=== PATIENT | male | born 2000 | race Caucasian/White ===

== ENCOUNTER 2022-10-12 09:56 | Observation (INO) ==
--- NOTE | 2022-10-06 09:31 | Anesthesiology Consultation ---
Date of Service October 06, 2022 Assessment & Plan (1) Encounter for pre-operative examination: Chart Review Chart Review: Acceptable Risk for Surgery and Patient NOT seen in Pre Admission Testing Pt rescheduled from 10/05/22 to 10/12/22 due to robot not functioning -COVID screening: Per PAT nursing assessment on 10/05/22. No known COVID-19 positive contacts or current COVID-19 related symptoms. Travel screen negative. At surgeon discretion if preop Covid testing being done. Cysto, left stent 09/13/22=Done under MAC. No issues noted per anesthesia record/progress note History Surgery Operation Date: 10/12/22 11:20 Proposed Procedures p Dismembered Laparoscopic Robotic Assisted Pyeloplasty - Stalin Kinney MD Height/Weight Height: 6 ft 1 in Weight: 71.214 kg Allergies Allergy/AdvReac Type Severity Reaction Status Date / Time gluten Allergy Intermediate celiac Verified 10/05/22 16:19 Sulfa (Sulfonamide Allergy Intermediate Rash Verified 10/05/22 16:19 Antibiotics) wheat Allergy Intermediate celiac Verified 10/05/22 16:19 Medications Home Medications Medication Instructions Recorded Confirmed Last Taken betamethasone dipropionate 0.05 % 1 applic topical .COMPLEX #45 grams 06/20/22 10/05/22 08/30/22 topical cream ondansetron 4 mg disintegrating 4 mg PO DAILY PRN Nausea 09/07/22 10/05/22 Unknown tablet oxycodone 5 mg capsule 5 mg PO Q8H PRN pain #10 caps 09/07/22 10/05/22 Unknown tamsulosin 0.4 mg capsule (Flomax) 0.4 mg PO HS 09/07/22 10/05/22 10/04/22 23:00 Past Medical History Medical History Celiac disease History of kidney stones passed on own Ureteropelvic junction (UPJ) obstruction Past Family History Family History Father Depression Hyperthyroidism Hypertension Mother Hypothyroidism Grandmother (Maternal) Diabetes Grandmother (Paternal) Myocardial infarction Other No family history of adverse response to anesthesia Denies family history of Crohn's disease Colorectal cancer Ulcerative colitis Past Surgical History Surgical History History of colonoscopy 07/17/22 @ [facility] History of esophagogastroduodenoscopy (EGD) 07/17/22 @ [facility] History of mandibular surgery upper and lower jaw surgery History of nasal surgery x2 [place] teeth extracted Social History Smoking Status: Never smoker Do You Dip or Chew Tobacco: No Hx Alcohol Use: Yes Alcohol type: wine alcohol intake frequency: a few times a month Hx Substance Use: No substance use type: does not use Lab Results Anesthesia Preop Results Results Anesthesia Widget: WBC 5.41 K/ul (4.8-10.8) 09/07/22 Hgb 14.8 g/dl (14.0-18.0) 09/07/22 Hct 41.6 % (42.0-52.0) L 09/07/22 Plt 260 K/uL (130-400) 09/07/22 Na 136 mmol/L (136-145) 09/07/22 K 3.5 mmol/L (3.5-5.1) 09/07/22 Cl 100 mmol/L (98-107) 09/07/22 CO2 27 mmol/L (21-32) 09/07/22 BUN 17 mg/dl (6-23) 09/07/22 Creat 1.07 mg/dl (0.6-1.4) 09/07/22 Glucose Level 109 mg/dl (70-99(Fasting)) H 09/07/22 Blood Type A Positive 10/05/22 Antibody Screen NEGATIVE 10/05/22 Testing Laboratory Results 09/07/22= URINE CULTURE: No growth- less than 1000 colonies/mL
[~2022-10-12 09:56] MED LIST: DEXAMETHASONE SOD INJ 4 MG/ML VIAL ONE; LIDOCAINE 2% 2 ML VIAL/AMP(20MG/ML) INFIL ONE; LR 15ML/HR IV SCH; MIDAZOLAM HCL 1 MG/ML 2ML VIAL ONE; ONDANSETRON INJ 2 MG/ML 2 ML VIAL ONE; PROPOFOL IV EMULSION 10 MG/ML 20 ML VIAL IV ONE; ROCURONIUM BROMIDE 10 MG/ML 5 ML VIAL IV ONE; ceFAZolin 2000MG 2,000 MG/15 ML SYR IV SCH; fentaNYL citrate PF 100 MCG/2 ML VIAL ONE
[2022-10-12] MEDS ORDERED: HYDROmorphone INJ 2 MG/ML SYR/VIAL IV PRN (10:56)
[2022-10-12] MEDS ORDERED: ePHEDrine sulfate 50 MG/ML AMP IV PRN (10:56)
[2022-10-12] MEDS ORDERED: ONDANSETRON INJ 2 MG/ML 2 ML VIAL IV PRN ×2 (10:56→17:03)
[2022-10-12] MEDS ORDERED: ATROPINE SULFATE 0.1 MG/ML 10ML SYR IV PRN (10:56)
--- NOTE | 2022-10-12 11:34 | History & Physical Report ---
Date of Service October 12, 2022 Assessment & Plan (1) Ureteropelvic junction (UPJ) obstruction: Plan: We reviewed the plan for robot-assisted laparoscopic left-sided pyeloplasty. We reviewed risks of bleeding, infection, injury to urinary tract, injury to nearby structures, need for additional procedures, need for ureteral stent. He expressed understanding and willingness to proceed with surgery. History of Present Illness Primary Care Provider: Britton Leung This is a 22-year-old male followed by urology for left-sided UPJ obstruction. He presents to the OR today for robot-assisted laparoscopic left pyeloplasty. He denies any changes in his health. Allergies Allergy/AdvReac Type Severity Reaction Status Date / Time gluten Allergy Intermediate celiac Verified 10/12/22 10:14 Sulfa (Sulfonamide Allergy Intermediate Rash Verified 10/12/22 10:14 Antibiotics) wheat Allergy Intermediate celiac Verified 10/12/22 10:14 Home Medications Medication Instructions Recorded Confirmed Type betamethasone dipropionate 0.05 % 1 applic topical .COMPLEX #45 grams 06/20/22 10/12/22 Rx topical cream ondansetron 4 mg disintegrating 4 mg PO DAILY PRN Nausea 09/07/22 10/12/22 History tablet oxycodone 5 mg capsule 5 mg PO Q8H PRN pain #10 caps 09/07/22 10/12/22 Rx tamsulosin 0.4 mg capsule (Flomax) 0.4 mg PO HS 09/07/22 10/12/22 History Past Med/Surg History Medical History Celiac disease History of kidney stones passed on own Ureteropelvic junction (UPJ) obstruction Surgical History History of colonoscopy 07/17/22 @ [facility] History of esophagogastroduodenoscopy (EGD) 07/17/22 @ [facility] History of mandibular surgery upper and lower jaw surgery History of nasal surgery x2 [place] teeth extracted Family History Father Depression Hyperthyroidism Hypertension Mother Hypothyroidism Grandmother (Maternal) Diabetes Grandmother (Paternal) Myocardial infarction Other No family history of adverse response to anesthesia Denies family history of Crohn's disease Colorectal cancer Ulcerative colitis Social History Smoking Status: Never smoker Second Hand Exposure: No; Do You Dip or Chew Tobacco: No; Hx Alcohol Use: Yes Alcohol type: wine Hx Substance Use: No Preferred Language: [place]erratian Communication Ability: Effective Speeder Operator Required: No Beliefs That Will Affect Care: None Current Living Situation: Alone Feels Safe at Home: Yes Safety Concerns: Feels Safe At This Time Assistive Devices: Glasses Review of Systems 12 point review of systems negative except for otherwise indicated. Physical Exam Constitutional: well developed and well nourished; no acute distress Eyes: + anicteric sclerae; pupils not irregular Respiratory: normal respiratory effort; no respiratory distress, does not use accessory muscles and no cough Cardiovascular: well perfused Gastrointestinal (Abdomen): Inspection/Auscultation: abdomen normal to inspection; abdomen not distended Musculoskeletal: Extremities: extremities normal to inspection Skin: normal turgor; no rashes and no lesions Neurologic: moves all extremities and awake Psychiatric: Orientation: alert and oriented x 3 Results & Data Vital Signs (Past 12 Hours) Vital Signs Temp Pulse Resp BP Pulse Ox O2 Del Method 10/12/22 10:18 36.6 C 88 20 146/74 H 100 Room Air
[2022-10-12] MEDS ORDERED: BUPIVACAINE 0.5 % 5 MG/1 ML MPF 30ML VIAL ONE (11:38)
[2022-10-12] MEDS ORDERED: HYDROmorphone INJ 2 MG/ML SYR/VIAL ONE (12:13)
[2022-10-12] MEDS ORDERED: KETAMINE 50 MG/5 ML SYRINGE ONE (12:14)
[2022-10-12] MEDS ORDERED: ePHEDrine sulfate 50 MG/ML AMP ONE (12:31)
[2022-10-12] MEDS ORDERED: SUGAMMADEX SODIUM 200 MG/2 ML VIAL IV ONE (13:39)
[2022-10-12] MEDS ORDERED: SURGICEL ABSORB HEMOSTAT 2IN X 14IN TOP ONE (14:33)
--- NOTE | 2022-10-12 15:25 | Operative Report ---
PG Post Operative Report Pre & Post Diagnosis Operation Date: 10/12/22 11:20 Pre-Op Diagnosis: Ureteropelvic junction obstruction (left) Post-Op Diagnosis: Ureteropelvic junction obstruction (left) I identified the patient and participated in the time-out.: Yes Procedure Operation Date: 10/12/22 11:20 Actual Procedures p Dismembered laparoscopic robotic assisted pyeloplasty, left(Left) - Stalin Kinney MD Surgeon Stalin Kinney MD Edi Analyst PALMIRA Gan Estimated Blood Loss 10 Findings See Below Crossing vessel identified to the lower pole of the left kidney. Dismembered pyeloplasty performed. Ureteral stent left in place. Specimens Ureteral segment compressed by crossing vessel Drains 6 Japanese by 26 cm double-J ureteral stent in the left ureter Anesthesia Type General Complications none Disposition Accompanied Patient To Recovery: Yes Disposition: Recovery Room Indications This is a 22-year-old male followed by urology for left-sided flank pain and left UPJ obstruction. He presents to the OR today for pyeloplasty. Description of Procedure The patient was identified in the preoperative holding area and informed consent was confirmed. He was marked on the left side. He was then brought to the operating room where general anesthesia was initiated. He was placed on the operating table in a flank position with the left flank elevated. All pressure points were carefully padded, and he was secured to the table using tape. His abdomen was prepped and draped in the usual sterile fashion a timeout was then performed. Robotic port sites were marked in a line approximately 6 cm right of midline. The uppermost of these ports was approximately 2 fingerbreadths below the costal margin, and the lower ports were 6-7 cm apart. An incision was made over the right upper quadrant port site. Using a Veress needle, access to the peritoneum was obtained, confirming good position with a drop test, negative aspiration and low initial insufflation pressure. The camera was inserted and the abdomen was surveyed. There was no injury to intra-abdominal contents. There were some thin adhesions of the descending colon to the abdominal wall. The remaining 8 mm robotic ports were placed under direct visualization and a 12 mm social media assistant port was placed just cephalad of the umbilicus. The robot was then docked. The adhesions were lysed sharply and the descending colon was reflected along the white line of Toldt. This allowed exposure to the kidney and the likely location of the hilum. The retroperitoneum was entered and the ureter was identified. Holding the ureter anterior leaving the gonadal vessels in place, dissection was carried upward toward the kidney. At the lower pole I encountered a crossing artery and vein, likely the source of his UPJ obstruction. The ureter and renal pelvis tissue were dissected free to gain mobility. Once there were sufficiently mobile, a stay suture was attached to the proximal ureter. The ureter was divided and his indwelling stent was removed. The upper portion of the ureter was passed under the crossing vessels toward the renal pelvis. The distal edge of this was divided sharply and sent for analysis labeled as left ureteral segment. This edge was then spatulated medially using Soliz scissors. The distal portion of the ureter was spatulated laterally. Interrupted 4-0 Vicryl sutures were then used to reapproximate the upper and lower portions of the ureter. The ureter was then reanastomosed to the renal pelvis using interrupted 4-0 Vicryl sutures. Before the anastomosis was complete, a 6 Japanese by 26 cm double-J ureteral stent was then fed antegrade over a 0.038 inch zip wire, through the social media assistant port, down the ureter until it was at the level of the bladder. The wire was then removed and there was good curl at the level of the kidney. The proximal curl was fed into the renal pelvis and the anastomosis was then completed. Final inspection confirmed excellent hemostasis. Surgicel was applied to the hilar area and the resection bed under the ureter. All instruments were removed and the robot was de-docked. 12 mm port was closed using 0 Vicryl interrupted suture in the fascia. The incisions were then anesthetized using half percent Marcaine and then closed using 4-0 Monocryl suture followed by layer of Dermabond. At this point the patient was awakened from general anesthesia and was brought to the recovery room in stable condition. All sponge and instrument counts were correct at the end the case. Of note, PALMIRA Gan assisted with positioning, exposure, retraction, passing in sutures and closing throughout the case. I attest to the content of the Intraoperative Record and any orders documented therein. Any exceptions are noted below.
[2022-10-12] MEDS ORDERED: METOPROLOL TARTRATE 1 MG/ML VIAL IV STA (16:04)
[2022-10-12] MEDS ORDERED: METOPROLOL TARTRATE 1 MG/ML VIAL IV ONE (16:04)
--- NOTE | 2022-10-12 16:28 | Anesthesiology Progress Note ---
Date of Service October 12, 2022 Anesthesia Post Procedure Vital Signs Vital Signs: Temp Pulse Pulse Resp BP Pulse Ox O2 Del Method 10/12/22 16:25 97.7 F 100 H 14 139/68 96 Room Air 10/12/22 16:15 97.7 F 101 H 15 138/78 96 Room Air 10/12/22 16:05 126 H 15 134/75 97 Room Air 10/12/22 15:55 127 H 18 139/64 99 Room Air 10/12/22 15:45 129 H 15 133/63 99 Oxymask 10/12/22 15:35 129 H 14 141/69 H 100 Oxymask 10/12/22 15:29 97.0 F L 120 H 19 137/66 100 Oxymask 10/12/22 10:18 97.9 F 88 20 146/74 H 100 Room Air O2 Flow Rate 10/12/22 16:25 10/12/22 16:15 10/12/22 16:05 10/12/22 15:55 10/12/22 15:45 5 10/12/22 15:35 5 10/12/22 15:29 5 10/12/22 10:18 Transfer of Care Handoff Completed per policy Notes Mental Status: alert / awake / arousable and participated in evaluation Patient Amnestic to Procedure: Yes Nausea / Vomiting: adequately controlled Pain: adequately controlled Airway Patency, RR, SpO2: stable & adequate BP & HR: stable & adequate Hydration State: stable & adequate Anesthetic Complications: no major complications apparent and Pt Satisfied with anesthetic care
[2022-10-12] MEDS ORDERED: oxyCODONE HCL IR 5 MG TAB (IMMEDIATE RELEASE) PO PRN (17:03)
[2022-10-12] MEDS ORDERED: IBUPROFEN 200 MG TAB PO PRN (17:03)
[2022-10-12] MEDS ORDERED: HYDROmorphone INJ 0.5 MG/0.5 ML SYR IV PRN ×2 (17:03)
[2022-10-12] MEDS: LACTATED RINGER'S 1,000 ML IV SCH (17:16)
[2022-10-12] MEDS: ACETAMINOPHEN 325 MG TAB PO SCH ×2 (17:33→23:10)
[2022-10-12] MEDS: oxyCODONE HCL IR 5 MG TAB (IMMEDIATE RELEASE) PO PRN (18:20)
--- NOTE | 2022-10-12 18:26 | XRay Report ---
KUB HISTORY: Status post placement of a left ureteral stent stent placement COMPARISON: None. FINDINGS: Nonobstructive bowel gas pattern. A left ureteral stent appears to be in satisfactory posi tioning. No definite renal or ureteral calculi identified. Tavarez catheter. Moderate gaseous distentio n of the stomach. Mild gaseous distention of the large and small bowel. No pneumoperitoneum or pneuma tosis. No fracture. IMPRESSION: 1. The left ureteral stent is in place. No renal or ureteral calculi identified. 2. Gaseous distention of the stomach, large and small bowel. ACT 112: Negative or not required by law. The above report was generated using voice recognition software. It may contain grammatical, syntax o r spelling errors. Electronically signed by: Antonio Norman M.D. 10/12/2022 6:25 PM
[2022-10-12 18:27] LABS: Hematocrit (blood only) 40.1 % (42.0-52.0); Hemoglobin 13.8 g/dl (14.0-18.0); Mean Corpuscular Hemoglobin 29.7 pg (25.0-34.0); Mean Corpuscular Hgb Conc 34.4 g/dL (32.0-36.0); Mean Corpuscular Volume 86.4 fL (80.0-100.0); Mean Platelet Volume 10.5 fL (9.4-12.4); Platelet Count 217 K/uL (130-400); RDW Coefficient of Variation 12.7 % (11.5-14.5); RDW Standard Deviation 39.6 fL (36.4-46.3); Red Blood Count 4.64 M/uL (4.70-6.10); White Blood Count 10.88 K/ul (4.8-10.8)
[2022-10-12 18:56] LABS: Basophils # (auto) 0.01 K/uL (0-0.2); Basophils % (auto) 0.1 %; Immature Granulocytes # (auto) 0.03 K/uL (0.01-0.20); Immature Granulocytes % (auto) 0.3 %; Lymphocytes # (auto) 0.51 K/uL (1.2-3.4); Lymphocytes % (auto) 4.7 %; Monocytes # (auto) 0.11 K/uL (0.11-0.59); Neutrophils # (auto) 10.22 K/uL (1.40-6.50); Neutrophils % (auto) 93.9 %
[2022-10-12] MEDS: ceFAZolin 2000MG 2,000 MG/15 ML SYR IV SCH (19:49)
[2022-10-12] MEDS: DOCUSATE SODIUM 100 MG CAP PO SCH (20:22)
[2022-10-12] MEDS ORDERED: TAMSULOSIN HCL 0.4 MG CAP PO SCH (21:00)
[2022-10-13] MEDS: LACTATED RINGER'S 1,000 ML IV SCH (02:15)
[2022-10-13] MEDS: ceFAZolin 2000MG 2,000 MG/15 ML SYR IV SCH (03:20)
[2022-10-13] MEDS: ACETAMINOPHEN 325 MG TAB PO SCH (05:20)
--- NOTE | 2022-10-13 07:11 | Urology Progress Note ---
Date of Service October 13, 2022 Assessment & Plan (1) Ureteropelvic junction (UPJ) obstruction: Plan: He is recovering appropriately s/p laparoscopic pyeloplasty on 10/12/2022. He will have breakfast, ambulate Ready for catheter to be removed Should be appropriate for discharge home today Admission and Anticipated Discharge Date Admission Date: October 12, 2022 Subjective Feeling well this morning, mild abdominal incisional pain Tolerating a diet with no nausea or vomiting Has not been up and ambulating No issues with Tavarez overnight X-ray shows stent to be in good position No fevers or chills Physical Exam Physical Exam: Well-appearing, NAD Gastrointestinal (Abdomen): Laparoscopic incisions with Dermabond, minimal surrounding bruising. Minimally tender to palpation Genitourinary: Tavarez catheter draining clear yellow urine Results & Data Vital Signs (Past 12 Hours) Vital Signs Temp Pulse Resp BP Pulse Ox O2 Del Method 10/13/22 03:25 36.6 C 97 H 14 116/62 96 Room Air 10/12/22 22:27 37 C 120 H 16 133/61 99 Room Air PG Care Time/CCT Total # of Minutes Spent Total Time Spent with Patient: Total time spent is greater than 50% in coordination of care (as documented) at patient's floor/unit and/or counseling patient: Coding Level of Care Code None Diagnoses Ureteropelvic junction (UPJ) obstruction N13.5
--- NOTE | 2022-10-13 07:19 | Discharge Summary ---
Date of Service October 13, 2022 Admission HPI Per Admitting Provider This is a 22-year-old male followed by urology for left-sided UPJ obstruction. He presented to the OR on 10/12/2022 for robot-assisted laparoscopic left pyeloplasty. He was admitted postoperatively in good condition. Admission Exam Per Admitting Provider Constitutional: well developed and well nourished; no acute distress Eyes: + anicteric sclerae; pupils not irregular Respiratory: normal respiratory effort; no respiratory distress, does not use accessory muscles and no cough Cardiovascular: well perfused Gastrointestinal (Abdomen): Inspection/Auscultation: abdomen normal to inspection; abdomen not distended Musculoskeletal: Extremities: extremities normal to inspection Skin: normal turgor; no rashes and no lesions Neurologic: moves all extremities and awake Psychiatric: Orientation: alert and oriented x 3 Principal Diagnosis Left UPJ obstruction Discharge Exam Well-appearing, NAD Gastrointestinal (Abdomen) Laparoscopic port incisions well approximated with Dermabond. Abdomen minimally tender to palpation Discharge Data Allergies Allergy/AdvReac Type Severity Reaction Status Date / Time gluten Allergy Intermediate celiac Verified 10/12/22 10:14 Sulfa (Sulfonamide Allergy Intermediate Rash Verified 10/12/22 10:14 Antibiotics) wheat Allergy Intermediate celiac Verified 10/12/22 10:14 Procedures Performed Operation Date: 10/12/22 11:20 Actual Procedures p Dismembered laparoscopic robotic assisted pyeloplasty, (Left) - Stalin Kinney MD Hospital Course (1) Ureteropelvic junction (UPJ) obstruction: He underwent robot-assisted laparoscopic left pyeloplasty on 10/12/2022. Postoperatively his pain was well controlled. He was able to tolerate a diet and ambulate without any difficulty. He was discharged home on 10/13/2022. Total Time Total Time Spent Total Time Spent (In Minutes): 15 Discharge Plan Discharge Items Patient Disposition: Home - Self-Care Reason For Visit: Ureteropelvic Junction (UPJ) Obstruction Discharge Diagnosis: Left UPJ obstruction Activity: Per Instructions section Non-emergency contact: Urologist Call non-emergency contact if: your pain is not controlled, your temperature is above 101, your wound has increased redness and your wound pain has increased Follow-up/Referrals: Britton Leung [Primary Care Provider] - Diet: Regular Addtl Attending Provider Instructions: The surgery you had was: Robot-assisted laparoscopic pyeloplasty Please take all medications as prescribed and keep all follow-ups as scheduled. Please call our office at [phone] with any questions, concerns or need to reschedule appointments for any reason. We are happy to assist you. Medications: Take Tylenol every 6 hours for baseline pain control You can take Ibuprofen every six hours as well. If you were prescribed narcotics such as oxycodone, please take it according to the instructions on the label. You have been prescribed a single dose of antibiotics. Please take this 1 hour prior to your office visit for stent removal. Activity/Recovering at home: We recommend having someone with you for the first few days after surgery to help care for you. It is okay to shower tomorrow. Please avoid swimming, bathing or using hot tub until incisions are well healed. Avoid driving until you are not requiring pain medication. Walk at least a few times a day. Increase your distance, as you feel able. Stairs in your home are okay. Please avoid strenuous or sexual activity until your follow-up. No lifting anything more than 10 pounds for 6 to 8 weeks Use a stool softener (i.e. Colace) to prevent constipation, especially the first two weeks post operatively. You should not be straining/pushing to have a bowel movement. Follow-up: We will have you come to the urology office in ~6 weeks for stent removal and check in. If you are having any issues before this, please call. Call [facility] at [phone] if you experience: Chest pain or trouble breathing (call 391 or go to the hospital). Fever of 101F or higher Symptoms of infection at incision site, including redness or swelling, warmth, or bad-smelling drainage Pain that is not controlled with medicines Pending Studies at Discharge: No Stand-Alone Forms: My [facility] Medications and DC Order Prescriptions: New ciprofloxacin HCl [Cipro] 500 mg tablet 500 mg PO ONCE Qty: 1 0RF Rx Instructions: Take 1 hour prior to stent removal Continued betamethasone dipropionate 0.05 % cream 1 applic topical .COMPLEX Qty: 45 1RF Rx Instructions: 1 applic topically to affected areas of the trunk twice daily x 2 weeks. Then stop x 2 weeks. Repeat course as directed.; oxycodone 5 mg capsule 5 mg PO Q8H PRN (Reason: pain) Qty: 10 0RF tamsulosin [Flomax] 0.4 mg capsule 0.4 mg PO HS ondansetron 4 mg tablet,disintegrating 4 mg PO DAILY PRN (Reason: Nausea) Discharge Orders: Discharge Order (Routine); Ordered 10/13/22 Ordered By: Stalin Kinney Admission Data Admit Date/Time: 10/12/22 15:35 Attending Provider: Stalin Kinney Admit Provider: Stalin Kinney Primary Care Provider: Brtiton Leung Coding Level of Care Code 01839 IN/OBS DISCH 30 MIN/LESS Diagnoses Ureteropelvic junction (UPJ) obstruction N13.5
[2022-10-13 08:09] LABS: Basophils # (auto) 0.01 K/uL (0-0.2); Basophils % (auto) 0.1 %; Eosinophils # (auto) 0.01 K/uL (0-0.50); Eosinophils % (auto) 0.1 %; Hematocrit (blood only) 39.8 % (42.0-52.0); Hemoglobin 13.5 g/dl (14.0-18.0); Immature Granulocytes # (auto) 0.03 K/uL (0.01-0.20); Immature Granulocytes % (auto) 0.3 %; Lymphocytes # (auto) 1.68 K/uL (1.2-3.4); Mean Corpuscular Hemoglobin 29.1 pg (25.0-34.0); Mean Corpuscular Hgb Conc 33.9 g/dL (32.0-36.0); Mean Corpuscular Volume 85.8 fL (80.0-100.0); Mean Platelet Volume 10.9 fL (9.4-12.4); Monocytes # (auto) 1.24 K/uL (0.11-0.59); Monocytes % (auto) 10.4 %; Neutrophils # (auto) 8.99 K/uL (1.40-6.50); Neutrophils % (auto) 75.1 %; Platelet Count 212 K/uL (130-400); RDW Coefficient of Variation 12.8 % (11.5-14.5); Red Blood Count 4.64 M/uL (4.70-6.10); White Blood Count 11.96 K/ul (4.8-10.8)
[2022-10-13] MEDS: DOCUSATE SODIUM 100 MG CAP PO SCH (08:40)
[2022-10-13 08:54] LABS: Anion Gap 8 (3-11); BUN Creatinine Ratio 11.1 (10-20); Blood Urea Nitrogen 8 mg/dl (6-23); Calcium 8.9 mg/dl (8.6-10.3); Carbon Dioxide 25 mmol/L (21-32); Chloride 108 mmol/L (98-107); Creatinine Clr Calc Pharmacy 167.8 ml/min; Est GFR (African American) > 150.0 ml/min; Est GFR (Non-African American) 130.6 ml/min; Glucose 113 mg/dl (70-99(Fasting)); Potassium 3.9 mmol/L (3.5-5.1); Sodium 141 mmol/L (136-145)
[2022-10-13] MEDS: oxyCODONE HCL IR 5 MG TAB (IMMEDIATE RELEASE) PO PRN (10:47)
== END 2022-10-13 11:39 | disposition home or self-care (01) | DRG 661 ==
LOC: ASU 09:56 → INTOOBSV 15:35 → 3W 15:35